=== PATIENT | male | born 1945 | race Caucasian/White ===

== ENCOUNTER 2017-03-27 14:21 | Emergency (ER) | payer OTHER ==
[~2017-03-27] VITALS: Ht 177.8 cm; Wt 79.4 kg
[~2017-03-27 14:21] MED LIST: ADULT LOW DOSE81 MG PO; ATORVASTATIN CA10 MG PO; CALCIUM600 MG PO; CIPROFLOXACIN500 MG PO; FLONASE ALLERG9.9 ML NS; FLONASE2 SPRAY NS; FLUNISOLIDE1 SPRAY; LIPITOR10 MG PO; MAGNESIUM100 MG PO; MULTIVITAMINS1 EAC7 PO; NORCO 5-325 TA1 EACH PO; POTASSIUM CHLO20 ME2 PO; SAW PALMETTO80 MG PO; SUPER B COMPLE150 MG PO; TAMSULOSIN HCL0.4 MG PO; VITAMIN C1000 M2 PO; VITAMIN D-32000 UNIT PO; VITAMIN E400 UNIT PO
[2017-03-27] MEDS ORDERED: ENOXAPARIN80 MG/0.8 SUB-Q (14:50)
[2017-03-27] MEDS ORDERED: FLAGYL500 MG PO (17:08)
== END 2017-03-27 17:24 | disposition home or self-care (01) ==
LOC: ED 14:21
DX: K52.9 Noninfective gastroenteritis and colitis, unspecified (principal); Z85.20 Personal history of malignant neoplasm of unspecified respiratory organ; Z87.891 Personal history of nicotine dependence; Z88.2 Allergy status to sulfonamides; Z88.1 Allergy status to other antibiotic agents; Z88.5 Allergy status to narcotic agent; Z79.51 Long term (current) use of inhaled steroids; Z79.899 Other long term (current) drug therapy
CPT/HCPCS: 71010; 80053; 81001; 83605; 85025; 87040; 87493; 96361; 96374; 99284; J2405; J7030

== ENCOUNTER 2017-04-27 15:06 | Emergency (ER) | payer BC, OTHER ==
[~2017-04-27] VITALS: Ht 177.8 cm; Wt 74.4 kg
[~2017-04-27 15:06] MED LIST changes: +ENOXAPARIN80 MG/0.8 SUB-Q; +FLAGYL500 MG PO
[2017-04-27] MEDS ORDERED: ZOLPIDEM TARTRAT5 MG PO (15:24)
[2017-04-27] MEDS ORDERED: VANCOCIN HCL125 MG PO (16:37)
== END 2017-04-27 17:36 | disposition home or self-care (01) ==
LOC: ED 15:06
DX: A04.7 Enterocolitis due to Clostridium difficile (principal); F17.200 Nicotine dependence, unspecified, uncomplicated; Z85.89 Personal history of malignant neoplasm of other organs and systems; Z98.890 Other specified postprocedural states; Z88.1 Allergy status to other antibiotic agents; Z88.2 Allergy status to sulfonamides; Z88.5 Allergy status to narcotic agent; Z79.899 Other long term (current) drug therapy; Z79.51 Long term (current) use of inhaled steroids
CPT/HCPCS: 80053; 85025; 96361; 96374; 99284; J2405; J7030

== ENCOUNTER 2022-02-21 11:07 | Emergency (ER) | payer OTHER ==
[~2022-02-21] VITALS: Ht 177.8 cm; Wt 95.2 kg
[~2022-02-21 11:07] MED LIST changes: +VANCOCIN HCL125 MG PO; +ZOLPIDEM TARTRAT5 MG PO
[2022-02-21] MEDS ORDERED: DONEPEZIL HCL10 MG PO (11:25)
[2022-02-21] MEDS ORDERED: FINASTERIDE5 MG PO (11:25)
[2022-02-21] MEDS ORDERED: EZETIMIBE10 MG PO (11:25)
[2022-02-21] MEDS ORDERED: MEMANTINE HCL5 MG PO (11:25)
[2022-02-21] MEDS ORDERED: FLUTICASONE PRO16 GM NAS (11:25)
[2022-02-21] MEDS ORDERED: PLAVIX75 MG PO (14:44)
--- NOTE | 2022-02-21 20:26 | EKG ---
[facility] [address] [facility] [place] [address] Signed Normal sinus rhythm Possible Left atrial enlargement Anterior infarct , age undetermined Abnormal ECG No previous ECGs available Confirmed by JIMI SCHWARTZ MD ([id number] on 02/21/2022 8:25:53 PM Electronically Signed By: JIMI SCHWARTZ MD 02/21/222024 PATIENT NAME: LULY REYES Electrocardiogram DATE OF : 49 PHYSICIAN: JIMI SCHWARTZ MD REPORT #: [id number] REPORT IS CONFIDENTIAL AND NOT TO BE RELEASED WITHOUT AUTHORIZATION
== END 2022-02-21 15:25 | disposition home or self-care (01) ==
LOC: ED 11:07
DX: G45.9 Transient cerebral ischemic attack, unspecified (principal); Z20.822 Contact with and (suspected) exposure to COVID-19; F17.200 Nicotine dependence, unspecified, uncomplicated; Z88.2 Allergy status to sulfonamides; Z88.1 Allergy status to other antibiotic agents; Z88.5 Allergy status to narcotic agent; Z79.899 Other long term (current) drug therapy
CPT/HCPCS: 36415; 70450; 70496; 70498; 71045; 80053; 81001; 84484; 85025; 85610; 85730; 87502; 93005; 93010; 99284-25; C9803; Q9967; U0003